=== PATIENT | male | born 1930 | race Caucasian/White ===

== ENCOUNTER → 2016-12-10 | Outpatient (CLI) | payer MEDICARE ==
[2014-12-08 07:00] VITALS: BP 173/84
[~2016-12-10] MED LIST: ASPI-482 PO; ATEN50TA PO; DABI150C PO; DIPH25CA58 PO; FINA5TAB4 PO; FOLI1TAB16 PO; FURO-68 PO; GLIP5TAB10 PO; LOSA100T6 PO; PHEN100C PO; POTA20TA12 PO; PRAM0.12 PO; SENN-87 PO; TAMS0.4C97 PO
--- NOTE | 2016-12-10 15:34 | CARD ---
APPROVED REPORT EXAM: Two-dimensional and M-mode echocardiogram with Doppler and color Doppler. Other Information Quality : GoodHR: 94bpm Rhythm : Atrial Fibrillation INDICATION Atrial Fibrillation RISK FACTORS Hypertension Previous tobacco use 2D DIMENSIONS RVDd3.1 (2.9-3.5cm)Left Atrium(2D)3.8 (1.6-4.0cm) IVSd1.0 (0.7-1.1cm)Aortic Root(2D)3.0 (2.0-3.7cm) LVDd4.1 (3.9-5.9cm)LVOT Diameter2.4 (1.8-2.4cm) PWd0.7 (0.7-1.1cm)LVDs3.0 (2.5-4.0cm) FS (%) 27.0 %SV38.7 ml LVEF(%)53.2 (>50%) Aortic Valve AoV Peak Mando.150.4cm/sAoV VTI29.4cm AO Peak GR.9.1mmHgLVOT Peak Mando.66.1cm/s AO Mean GR.5mmHgAVA (VMAX)2.00cm2 Mitral Valve MV E Peak Gr.2mmHgMV E Mean Gr.1mmHg Pulmonary Valve PV Peak Fsnsbvez39.9cm/s Tricuspid Valve TR P. [id number]/sTR Peak Gr.39mmHg LEFT VENTRICLE The left ventricle is normal size. There is normal left ventricular wall thickness. The left ventricu lar systolic function is normal and the ejection fraction is within normal range. The Ejection Fracti on is 50-55%. Septal motion consistent with pacemaker activation. Tissue Doppler imaging reveals mild left ventricular diastolic dysfunction. RIGHT VENTRICLE The right ventricle is normal size. There is normal right ventricular wall thickness. The right ventr icular systolic function is normal. There is a pacemaker lead in the right ventricle. ATRIA The left atrium size is normal. The right atrium size is normal. The interatrial septum is intact wit h no evidence for an atrial septal defect or patent foramen ovale as noted on 2-D or Doppler imaging. AORTIC VALVE The aortic valve is moderately sclerotic. The aortic valve is trileaflet. Doppler and Color Flow reve aled no significant aortic regurgitation. There is no significant aortic valvular stenosis. MITRAL VALVE Mitral annular calcification is mild. The mitral valve leaflets are thickened. There is no evidence o f mitral valve prolapse. There is no mitral valve stenosis. Doppler and Color Flow revealed trace karma ral regurgitation. TRICUSPID VALVE Doppler and Color Flow revealed mild tricuspid regurgitation. The pulmonary artery systolic pressure is estimated at 43 mmHg. There is mild pulmonary hypertension. PULMONIC VALVE The pulmonary valve is not well visualized but appears to open adequately. Doppler and Color Flow rev ealed no pulmonic valvular regurgitation. There is no pulmonic valvular stenosis by spectral Doppler. GREAT VESSELS The aortic root is normal in size. The ascending aorta is normal in size. The pulmonary artery is nor mal. The IVC is normal in size and collapses >50% with inspiration. PERICARDIAL EFFUSION There is no evidence of significant pericardial effusion. Critical Notification Critical Value: No <Conclusion> The left ventricle is normal size. The left ventricular systolic function is normal and the ejection fraction is within normal range. The Ejection Fraction is 50-55%. There is a pacemaker lead in the right ventricle. There is no significant aortic valvular stenosis. Doppler and Color Flow revealed no significant aortic regurgitation. Doppler and Color Flow revealed trace mitral regurgitation. Doppler and Color Flow revealed mild tricuspid regurgitation. The pulmonary artery systolic pressure is estimated at 43 mmHg. There is mild pulmonary hypertension.
== END | disposition home or self-care (01) ==
LOC: ECHO 07:57
PROVIDERS: ATTEND Internal Medicine Cardiovascular Disease
DX: I48.91 Unspecified atrial fibrillation (principal); I27.2 Other secondary pulmonary hypertension; I10 Essential (primary) hypertension; I07.1 Rheumatic tricuspid insufficiency; Z87.891 Personal history of nicotine dependence
CPT/HCPCS: 93306